=== PATIENT | male | born 1940 | race Caucasian/White ===

== ENCOUNTER 2016-12-13 11:01 | Inpatient (IN) | payer MEDICARE ==
[2016-12-02 09:44] LABS: BASOPHILS 0.5 %; BASOPHILS ABSOLUTE 0.05 10/3/uL (0.0-0.16); EOSINOPHILS 3.9 %; EOSINOPHILS ABSOLUTE 0.43 10/3/uL (0.0-0.53); HEMATOCRIT 44.1 % (40.0-51.0); HEMOGLOBIN 13.9 g/dL (13.6-17.8); IMMATURE GRANULOCYTES 0.2 %; IMMATURE GRANULOCYTES ABSOLUTE 0.02 10/3/uL (0.0-0.11); LYMPHOCYTES ABSOLUTE 3.28 10/3/uL (0.67-4.30); MEAN CORPUSCULAR HEMOGLOB 29.3 pg (26.0-34.0); MEAN CORPUSCULAR VOLUME 92.8 fL (80-100); MEAN PLATELET VOLUME 11.3 fL (9.2-13.0); MONOCYTES 7.9 %; MONOCYTES ABSOLUTE 0.86 10/3/uL (0.21-1.20); NEUTROPHILS 57.5 %; PLATELET COUNT 244 10/3/uL (150-400); RED CELL COUNT 4.75 10/6/uL (4.7-6.1); WHITE BLOOD CELLS 10.9 10/3/uL (4.5-10.5)
[2016-12-02 09:45] LABS: MANUAL DIFF NO %; MEAN CORPUS HGB CONC 31.5 g/dL (32.0-36.0)
[2016-12-02 09:59] LABS: BUN (BLOOD UREA NITROGEN) 20 MG/DL (6-23); CALCIUM, SERUM 8.8 MG/DL (8.5-10.4); CHLORIDE, SERUM 106 MMOL/L (96-112); CO2 (CARBON DIOXIDE) 32 MMOL/L (24-34); CREATININE 1.05 MG/DL (0.70-1.30); GFR AFRICAN AMERICAN 80 ML/MIN (>=60); GFR NON AFRICAN AMERICAN 69 ML/MIN (>=60); GLUCOSE, SERUM 107 MG/DL (60-99); POTASSIUM, SERUM 4.9 MMOL/L (3.5-5.3); SODIUM, SERUM 144 MMOL/L (135-148)
--- NOTE | ~2016-12-13 | OP ---
Record Of Operation [facility] [address] [place]. [address] NAME: SHANIQUE MCDOWELL : 42 STATUS : ADM IN PAT#: [id number] AGE: 76 ADM/REG DATE : 12/13/16 MR#: [id number] REPORT SERV DATE: 12/13/16 DICTATED BY: LUCA VALENZUELA DATE: 12/13/16 REPORT STATUS : Draft TRANSCRIBED BY: MODL DATE: 12/13/16 DATE OF PROCEDURE: 12/13/2016 PREOPERATIVE DIAGNOSIS: High-grade right carotid stenosis with amaurosis fugax. POSTOPERATIVE DIAGNOSIS: High-grade right carotid stenosis with amaurosis fugax. PROCEDURE: Right carotid endarterectomy. SURGEON: Luca Valenzuela M.D. [place]EL[place] ENAMELER: Noreen. ANESTHESIA: General. COMPLICATIONS: None. BLOOD LOSS: 100. HISTORY: The patient is a 76-year-old male, who was seen in the office, noted to have a high grade carotid stenosis and symptoms consistent with amaurosis fugax. After two separate discussions in the office, the patient expressed desire to proceed with carotid endarterectomy. This was discussed in detail with the patient and including the risks, benefits, and alternatives. DESCRIPTION OF PROCEDURE: The patient was taken to the operating room and placed in the supine position. He was given general anesthesia without complication. Roll was placed under shoulders. Head was turned to the left. On CT scan, the patient was noted to have a low bifurcation. An incision was created on the anterior border of the sternocleidomastoid muscle in the inferior portion of the neck. Bovie cautery was used to dissect through subcutaneous tissue and platysma. The sternocleidomastoid muscle was identified. Dissection was continued on the anterior border of it. The internal jugular vein was identified and dissection was continued on the anterior border of it. The common facial vein was not seen due to the low level of bifurcation. The common carotid artery was identified, freed circumferentially and isolated with a vessel loop. The vagus nerve was identified and preserved. The external carotid artery and internal carotid arteries were freed circumferentially beyond the area of disease and isolated with vessel loops. The patient was given 6000 units of heparin intravenously. The ansa cervicalis nerve laid right on the artery at the bifurcation so the medial portion of this was divided to allow adequate exposure of the artery. After more than three minutes of heparinization, the internal carotid artery was controlled with a vessel loop followed by the common carotid artery and external carotid artery. An 11 blade was used to create an arteriotomy on the common carotid artery. This was extended longitudinally onto the internal carotid artery beyond the area of disease. A 12 shunt was placed into the internal carotid artery once good back bleeding was noted. This was placed into the common carotid artery restoring flow to the brain. An endarterectomy was performed in standard fashion with feathering of the proximal Record Of Operation [address] [place]. [address] NAME: SHANIQUE MCDOWELL : 42 STATUS : ADM IN PAT#: [id number] AGE: 76 ADM/REG DATE : 12/13/16 MR#: [id number] REPORT SERV DATE: 12/13/16 DICTATED BY: LUCA VALENZUELA DATE: 12/13/16 REPORT STATUS : Draft TRANSCRIBED BY: MODL DATE: 12/13/16 and distal end points and eversion endarterectomy on the external carotid artery. The endarterectomy site was copiously irrigated until all loose debris was removed. Once this was felt to be adequate, the arteriotomy was closed using 8 x 8 bovine pericardial patch and running 6-0 Prolene suture. Prior to completion, the shunt was pulled from the lateral aspect. The internal and external carotid arteries were back bled. The common carotid artery was flushed. The endarterectomy site was copiously irrigated. The closure was completed and flow restored to the external carotid artery after more than five heartbeats to the internal carotid artery. A single bleeding point was controlled with additional 6-0 Prolene suture. The patient's blood pressure was brought to 140 mmHg systolic and hemostasis assured. Fibrillar was placed over the patch closure. The deep tissues and platysma were closed with running 2-0 Vicryl suture. The skin was closed with 4-0 Monocryl suture. Dermabond dressing applied. The patient tolerated the procedure well. He will be extubated in the operating room after neurologically intact, taken to recovery for continued care. JULIA/CHLOE Luca Valenzuela M.D. / [id number] CC: Luca Valenzuela M.D.
--- NOTE | ~2016-12-13 | HP ---
History And Physical [place] [id number] [facility] [place]. [address] NAME: SHANIQUE MCDOWELL : 42 STATUS : ADM IN [facility]#: [id number] AGE: 76 ADM/REG DATE : 12/13/16 MR#: [id number] REPORT SERV DATE: 12/13/16 DICTATED BY: LESTER VALENZUELA DATE: 12/13/16 REPORT STATUS : Draft TRANSCRIBED BY: CHLOE DATE: 12/13/16 DATE OF ADMISSION: 12/13/2016 HISTORY: The patient is a 76-year-old male seen originally in the office in September with an episode of amaurosis fugax. He was noted to have a high-grade carotid stenosis at that time. He additionally had left hand weakness though he noted this felt similar to his previous carpal tunnel issues. He was unsure whether to go ahead with surgery or [facility]. We saw him again in October and at that time, he had no new symptoms and was ready to proceed with carotid endarterectomy. He additionally is seen today and has no new symptoms of stroke or amaurosis fugax today. His health is otherwise currently stable. PAST MEDICAL HISTORY: Significant for carotid stenosis. SURGICAL HISTORY: Significant for colonoscopy, knee replacement, and teeth implants. SOCIAL HISTORY: He is a reformed smoker. Nondrinker. He is . FAMILY HISTORY: Noncontributory. MEDICATIONS: Valium; Plavix; simvastatin; aspirin; Tylenol; amitriptyline; temazepam; prazosin; and ibuprofen. REVIEW OF SYSTEMS: He has no fever, chills, or systemic complaints. RESPIRATORY: Denies cough or shortness of breath. CARDIAC: Denies chest pain or palpitations. He has no GI or complaints. PHYSICAL EXAMINATION: GENERAL: The patient is in usual state of health, no distress. LUNGS: Clear bilaterally. HEART: Regular rate and rhythm. NEUROLOGIC: He is alert and oriented. Preserved motor function in lower extremities. LABORATORY STUDIES: CT scan noted a high-grade complicated plaque at the right internal carotid artery. IMPRESSION: High-grade right carotid stenosis with symptoms. PLAN: Plan is for a right carotid endarterectomy. This has been discussed in detail with the patient and in the office. JULIA/CHLOE History And Physical [address] [place] [address] NAME: SHANIQUE MCDOWELL : 42 STATUS : ADM IN PAT#: [id number] AGE: 76 ADM/REG DATE : 12/13/16 MR#: [id number] REPORT SERV DATE: 12/13/16 DICTATED BY: LESTER VALENZUELA DATE: 12/13/16 REPORT STATUS : Draft TRANSCRIBED BY: MODL DATE: 12/13/16 Lester Valenzuela M.D. / [id number] CC: Lester Valenzuela M.D.
[~2016-12-13 11:01] MED LIST: AMIT50 PO; ASAB PO; ATEN50 PO; IBU600 PO; IBU800 PO; MINIPRESS 2 MG C2 MG PO; PLAVIX PO; RESTORIL30 MG PO; WELLSR100 PO; ZOCOR20 PO; ZOCOR40 PO; ZOL100 PO
[2016-12-14] MEDS ORDERED: NORCO1 TA1 PO (10:10)
== END 2016-12-14 11:34 | disposition home or self-care (01) | DRG 38 ==
LOC: SDC/OF 11:01 → PACU 16:21 → CVICU 18:39
PROVIDERS: Surgery
PROC: 03CM0ZZ Extirpation of Matter from Right External Carotid Artery, Open Approach (ICD-10-PCS; principal; 2016-12-13 13:15)
DX: I65.21 Occlusion and stenosis of right carotid artery (principal); G45.3 Amaurosis fugax; I10 Essential (primary) hypertension; Z87.891 Personal history of nicotine dependence; Z79.02 Long term (current) use of antithrombotics/antiplatelets; Z79.82 Long term (current) use of aspirin; Z79.899 Other long term (current) drug therapy
CPT/HCPCS: 80048; 85025; 87070; 88304; 88311; 93005; A9270-GY; C1768; J0690; J2370; J2405; J2710; J3010

== ENCOUNTER 2017-02-15 08:15 | Inpatient (IN) | payer MEDICARE ==
[2017-02-07 14:21] LABS: BASOPHILS 0.4 %; BASOPHILS ABSOLUTE 0.04 10/3/uL (0.0-0.16); EOSINOPHILS 3.8 %; EOSINOPHILS ABSOLUTE 0.37 10/3/uL (0.0-0.53); HEMATOCRIT 39.9 % (40.0-51.0); HEMOGLOBIN 12.7 g/dL (13.6-17.8); IMMATURE GRANULOCYTES 0.3 %; IMMATURE GRANULOCYTES ABSOLUTE 0.03 10/3/uL (0.0-0.11); LYMPHOCYTES 26.2 %; LYMPHOCYTES ABSOLUTE 2.56 10/3/uL (0.67-4.30); MEAN CORPUS HGB CONC 31.8 g/dL (32.0-36.0); MEAN CORPUSCULAR HEMOGLOB 29.2 pg (26.0-34.0); MEAN CORPUSCULAR VOLUME 91.7 fL (80-100); MEAN PLATELET VOLUME 11.4 fL (9.2-13.0); MONOCYTES 9.3 %; MONOCYTES ABSOLUTE 0.91 10/3/uL (0.21-1.20); NEUTROPHILS ABSOLUTE 5.87 10/3/uL (2.02-8.40); PLATELET COUNT 307 10/3/uL (150-400); RBC DISTRIBUTION WIDTH 12.8 % (12.0-16.0); RED CELL COUNT 4.35 10/6/uL (4.7-6.1); WHITE BLOOD CELLS 9.8 10/3/uL (4.5-10.5)
[2017-02-07 14:22] LABS: MANUAL DIFF NO %
[2017-02-07 14:33] LABS: BUN (BLOOD UREA NITROGEN) 18 MG/DL (6-23); CALCIUM, SERUM 8.9 MG/DL (8.5-10.4); CHLORIDE, SERUM 106 MMOL/L (96-112); CO2 (CARBON DIOXIDE) 33 MMOL/L (24-34); CREATININE 0.85 MG/DL (0.70-1.30); GFR AFRICAN AMERICAN 99 ML/MIN (>=60); GFR NON AFRICAN AMERICAN 85 ML/MIN (>=60); GLUCOSE, SERUM 104 MG/DL (60-99); SODIUM, SERUM 142 MMOL/L (135-148)
--- NOTE | ~2017-02-15 | OP ---
Record Of Operation [facility] [address] [place]. [address] NAME: SHANIQUE MCDOWELL : 42 STATUS : ADM IN PAT#: [id number] AGE: 76 ADM/REG DATE : 02/15/17 MR#: [id number] REPORT SERV DATE: 02/15/17 DICTATED BY: LESTER FORD DATE: 02/15/17 REPORT STATUS : Draft TRANSCRIBED BY: MODL DATE: 02/15/17 DATE OF PROCEDURE: 02/15/2017 PREOPERATIVE DIAGNOSIS: 6.5 cm abdominal aortic aneurysm. POSTOPERATIVE DIAGNOSIS: 6.5 cm abdominal aortic aneurysm. PROCEDURE: Endovascular aneurysm repair. SURGEON: Lester Ford M.D. FELLOW: [place]. ANESTHESIA: General. COMPLICATIONS: None. BLOOD LOSS: 100. HISTORY: The patient is a 76-year-old male with a 6.5 cm abdominal aortic aneurysm. It was thought he would benefit from endovascular repair. This was discussed in detail with the patient. He expressed understanding and desired to proceed. DESCRIPTION OF PROCEDURE: The patient was taken to the operating room and placed in the supine position. He was given general anesthesia without complication. His abdomen, groins, and thighs were prepped and draped in sterile fashion. In both groins, ultrasound was used to identify the common femoral artery which was accessed with an 18-gauge needle. Wire passed easily on both sides. In both groins, the access site was enlarged with an 11 blade and dilated with hemostat and preclosed with two ProGlide devices at 90-degree angles. The patient was given 6000 units of heparin intravenously. A 20-[place] sheath was placed up the right side and a 12-[place] sheath placed up the left side. A 35 x 14 x 14 main body was brought up the right side and a flush catheter brought up the left side. Aortogram was performed showing a widely patent aorta with patent bilateral renal arteries. There was extensive branch filling which appeared to be off the SMA filling collaterals to the celiac artery; however, additional images were obtained which confirmed this. The main body was then deployed beneath the renal arteries in good position. The contralateral gate was then accessed from the left groin with the bur catheter and Glidewire. Arteriogram was performed showing the device in good position beneath the renal arteries. A left iliac arteriogram was performed showing widely patent iliac arteries in the location of the bifurcation. An 18 x 13.5 contralateral limb was then deployed from the contralateral gate into the common iliac artery on the left. The right iliac arteriogram was performed showing widely patent common, internal, and external iliac arteries after the residual main body was deployed. The extension limb was then deployed into the right common iliac artery, 18 x 9.5. The device was then angioplastied from both groins. A final aortogram was performed showing a widely patent stent graft with no stenosis. The renal arteries were widely patent. The bilateral iliac arteries were patent as well. No endoleak was noted. This was felt to be Record Of Operation [facility] [address] [facility] [place]. [address] NAME: SHANIQUE MCDOWELL : 42 STATUS : ADM IN [facility]#: [id number] AGE: 76 ADM/REG DATE : 02/15/17 MR#: [id number] REPORT SERV DATE: 02/15/17 DICTATED BY: LESTER FORD DATE: 02/15/17 REPORT STATUS : Draft TRANSCRIBED BY: CHLOE DATE: 02/15/17 an excellent result. In both groins, the sheaths were removed, the access secured with ProGlide devices, and hemostasis was achieved. The patient had palpable pedal pulses at the end of the case. He was extubated in the operating room and taken to recovery for postoperative care. JULIA/CHLOE Lester Ford M.D. / [id number] CC: Elliot Ferrara M.D.
[~2017-02-15 08:15] MED LIST changes: +NORCO1 TA1 PO
== END 2017-02-16 10:30 | disposition home or self-care (01) | DRG 269 ==
LOC: SDC/OF 08:15 → PACU 11:53 → CVICU 13:03
PROVIDERS: Surgery
PROC: 04V03DZ Restriction of Abdominal Aorta with Intraluminal Device, Percutaneous Approach (ICD-10-PCS; principal; 2017-02-15 10:15)
DX: I71.4 Abdominal aortic aneurysm, without rupture (principal); I10 Essential (primary) hypertension; F32.9 Major depressive disorder, single episode, unspecified; F41.9 Anxiety disorder, unspecified; E78.00 Pure hypercholesterolemia, unspecified; M17.11 Unilateral primary osteoarthritis, right knee
CPT/HCPCS: 34802; 34825; 36200; 75952; 75953; 80048; 85025; 87641; 93005; A9270-GY; C1725; C1760; C1768; C1769; C1874; C1894; J0690; J2250; J2370; J2405; J2710; J3010; Q9967